=== PATIENT | male | born 1955 | race Caucasian/White ===

== ENCOUNTER → 2018-03-19 09:53 | Outpatient (CLI) | payer BC, SELFPAY ==
--- NOTE | 2018-03-19 | DI.US.S_ITS ---
PROCEDURE: US RENAL COMPLETE INDICATIONS: 63 year-old male with renal cysts on prior imaging studies. TECHNIQUE: Real-time scanning was performed of the kidneys and bladder, with image documentation. COMPARISON: [facility], MR, ANGIO ABDOMEN W&WO CONTRAST, 01/24/2014, 9:16. CT, IVP - CT (PNL), 08/12/2013, 8:06. [facility], US, RENAL COMPLETE, 09/08/2013, 9:51. FINDINGS: Kidneys: Kidneys are normal in size. Right kidney measures 12.6 cm long; left kidney measures 10.4 cm long. Right renal cortical thickness is 2.4 cm; left renal cortical thickness is 1.4 cm. Renal cortical echotexture is normal. No hydronephrosis or nephrolithiasis. No suspicious solid mass lesions. Stable appearance of bilateral renal cyst measuring 3.6 x 3.9 x 3.6 cm on the right and 1.7 x 1.5 x 1.4 cm on the left. Bladder: Pre-void bladder volume is 165 mL. Post-void residual is 45 mL. Pre-void images demonstrate no intraluminal masses or stones. On pre-void images, neither ureteral jets are noted with color Doppler interrogation. (Of note, ureteral jets may not be detectable in up to 25% of cases due to insufficient differences in specific gravity between ureteral and bladder urine). Miscellaneous: No free pelvic fluid. IMPRESSION: Bilateral exophytic renal cortical simple cysts are not significantly changed in size. No further imaging followup is needed. Dictated by: Jere HARP Interpreted: Marco Muhammad MD on 03/19/2018 at 13:29 Approved by: Mark Edward M.D. on 03/22/2018 at 10:13
== END ==
PROVIDERS: Family Provider Family Medicine; PCP Family Medicine; Visit Provider Urology
DX: N28.1 Cyst of kidney, acquired (principal)
CPT/HCPCS: 76770

== ENCOUNTER → 2019-10-10 11:48 | Outpatient (CLI) | payer MEDICARE, BC, SELFPAY ==
--- NOTE | 2019-10-10 | DI.RAD.S_ITS ---
PROCEDURE: XR WRIST RT MIN 3V INDICATIONS: right wrist pain TECHNIQUE: 4 views of the wrist were acquired. COMPARISON: None. FINDINGS: Bones: No fractures or dislocations. No suspicious bony lesions. Scaphoid view: Scaphoid appears intact. Soft tissues: No suspicious soft tissue calcifications. IMPRESSION: No acute osseous abnormality of the right wrist. Dictated by: Keron Tracey M.D. on 10/10/2019 at 15:10 Approved by: Keron Tracey M.D. on 10/10/2019 at 15:13
== END ==
PROVIDERS: Family Provider Family Medicine; PCP Family Medicine; Visit Provider Family Medicine
DX: M25.531 Pain in right wrist (principal)
CPT/HCPCS: 73110

== ENCOUNTER → 2020-06-08 10:07 | Outpatient (CLI) | payer MEDICARE, BC, SELFPAY ==
[2020-06-08 11:37] LABS: COVID19 Sendout Not Detected (Not Detect)
== END ==
PROVIDERS: PCP Family Medicine; Visit Provider Physician Assistant
DX: Z11.59 Encounter for screening for other viral diseases (principal)
CPT/HCPCS: 87635

== ENCOUNTER 2020-06-11 14:03 | Day surgery (SDC) | payer MEDICARE, BC, SELFPAY ==
--- NOTE | 2020-06-11 | PATH_ITS ---
[facility] Accession Number: [id number] . 01 Material submitted: . colon - ASCENDING COLON POLYP BIOPSY 2MM . 01 Clinical history: . SDC . 02 Diagnosis: Ascending Colon, Polyp 2 mm, Biopsy: Tubular adenoma. MRV 06/13/2020 1319 Local . 02 Electronically signed: . Vanessa Chacon MD, Pathologist NPI- [id number] . 01 Gross description: . ASCENDING COLON POLYP BIOPSY 2MM: Received in formalin is 1 fragment(s) of persaud, soft tissue measuring 0.3 x 0.3 x 0.2 cm submitted entirely in 1 cassette(s) /QBJ 06/12/2020 0701 Local . 02 Pathologist provided ICD-10: D12.2 . 02 CPT . 545547 Performed at: 01 [facility] [address] [id number] MD Lloyd Jacobs MD Phone: [phone] Performed at: 02 [facility] [address] [place], [place] [id number] MD Vanessa Chacon MD Phone: [phone]
--- NOTE | 2020-06-11 12:21 | P.HP_ITS ---
History of Present Illness History of Present Illness Date Patient Seen: 06/11/20 Chief complaint: SDC Narrative: 64 year old male comes in today for consideration of a screening colonoscopy. Has had 3 lifetime colonoscopies. The first colonoscopy was at around age 49, reportedly normal. The last 2 were in 2017: 01/21/2017, indicated for screening. Redundant colon. Large 3 cm polyp in the cecum, advanced mixed tubular and villiform adenoma with focal areas of high- grade dysplasia. Short stalk appeared neoplastic with no normal colon mucosa identified. No evidence of invasive malignancy. 07/06/2017, indicated for surveillance of post polypectomy site. No recurrence of polypoid previous polypectomy site seen, targeted biopsy taken and benign. Colon polyps x2, tubular adenomas. There have been no lower GI symptoms suggesting disease such as change in bowel habits, bleeding, abdominal pain or anemia. There's been no family history of colon cancer or colon polyps. Overall health issues have been stable, including no major cardiac events for at least 6 weeks. PCP: Dr. Calles Past medical history: Skin cancer Gout Trigger finger, Hypertension Tachycardia Hypothyroidism History of colon polyps Obesity Hyperlipidemia Anxiety Prostate cancer Sleep apnea GERD History of tobacco dependence Bilateral knee pain Past surgical history: Tonsillectomy Radical prostatectomy, 2016 Carpal tunnel Cubital tunnel Meniscal repair Umbilical hernia repair Family history: Noncontributory Social history: , retired. Medications: Zocor 20 mg p.o. q.day Lisinopril 40 mg p.o. q.day Clonidine 0.3 mg, half tab p.o. b.i.d. Chlorthalidone 25 mg p.o. q.d. Levothyroxine 5 mcg p.o. q.day Paxil 20 mg p.o. q.day Sulindac 20 mg p.o. b.i.d. as needed for gout flares Allergies: Steri-Strips Bactrim Patient History Medical History (Updated 06/11/20 @ 14:36 by Vanessa Sanchez RN) Prostate cancer (Acute) Torn meniscus (Acute) Umbilical hernia (Acute) Surgical History (Updated 06/11/20 @ 14:36 by Vanessa Sanchez RN) History of carpal tunnel release (Acute) Hx of tonsillectomy (Acute) S/P cubital tunnel release (Acute) Meds Home Medications and Allergies Home Medications Medication Instructions Recorded Confirmed Type chlorthalidone 25 mg PO DAILY 06/11/20 06/11/20 History clonidine HCl 0.3 mg PO BID 06/11/20 06/11/20 History levothyroxine 25 mcg PO DAILY 06/11/20 06/11/20 History lisinopril 40 mg PO DAILY 06/11/20 06/11/20 History paroxetine HCl 20 mg PO DAILY 06/11/20 06/11/20 History simvastatin 20 mg PO DAILY 06/11/20 06/11/20 History sulindac 200 mg PO BID PRN 06/11/20 06/11/20 History Allergies Allergy/AdvReac Type Severity Reaction Status Date / Time sulfamethoxazole Allergy Mild Rash Verified 06/11/20 14:37 [From Bactrim] trimethoprim [From Bactrim] Allergy Mild Rash Verified 06/11/20 14:37 steristrips Allergy Blister Uncoded 06/11/20 14:37 Review of Systems Review of Systems ROS: Yes All systems reviewed with the patient and are negative except as otherwise documented Exam Narrative Exam Narrative: GENERAL: Alert and oriented, appearing stated age and in no acute distress. HEENT: Head normocephalic/atraumatic. Pupils equal, round, and reactive to light and accomodation. Extraocular muscles intact. Tympanic membranes clear. Nasal mucosa moist, septum midline. Oral mucosa moist, no lesions. Neck soft and supple, no lymphadenopathy. LUNGS: Clear to ausculation bilaterally, no wheezes, rhonchi or rales. CV: Normal S1 and S2 with regular rate and rhythm, no audible murmurs, rubs or gallops. ABDOMEN: Soft, non-tender, non-distended, no organomegaly. Positive bowel sounds. EXTREMITIES: No clubbing, cyanosis, or edema. NEURO: Cranial nerves II through XII grossly intact, no focal deficits. PSYCH: Alert and oriented x 3. SKIN: No concerning lesions. Assessment & Plan Assessment & Plan narrative: 1. History of colon polyps 2. Screening for colon cancer Plan for colonoscopy. The nature and character of the procedure as well as anticipated results were discussed. The possibility of not completing the procedure was also discussed. Possible complications including aspiration pneu monia, bleeding, perforation and reaction to medications either for sedation or preparation and missed lesions were discussed. Questions were answered and proceeding to the colonoscopy was elected. Informed consent signed. I sincerely appreciate the referral allowing me to participate in this patient's care. Please contact me with any questions or concerns.
--- NOTE | 2020-06-11 12:32 | PM.OP.ENDO ---
Operative Date/Time/Diagnoses Date of procedure: 06/11/20 Procedure Notes SCOAP/Timeout: 3:02 p.m. Procedure in detail: ENDOSCOPIST: Berta Mccain MD Sedation RN: Rainer Padilla RN Sedation start time: 15:03 Sedation end time: 15:22 PROCEDURE: Colonoscopy with biopsy INDICATIONS: 1. History of colon polyps 2. Screening for colon cancer MEDICATION: Levsin 0.125 mg sublingual, incremental doses of Versed and fentanyl until appropriate level sedation achieved. ASA CLASS: 2 CECAL WITHDRAWAL TIME: 22 minutes COMPLICATIONS: None. EXTENT OF PROCEDURE: Cecum. QUALITY OF PREP: Good with portions of liquid stool. PROCEDURE: Prior to insertion of the colonoscope, a digital rectal examination was accomplished with circumferential palpation of the distal rectal mucosa without significant findings being noted. The high-definition colonoscope was passed into the rectum in the usual fashion and advanced over to the cecum without difficulty. The ileocecal valve, appendiceal stoma, and medial wall all could be inspected and no abnormalities were seen. No recurrence of previous polyp noted. ASCENDING COLON: As the colonoscope was withdrawn, care was taken to expose and inspect the haustral folds and a small, 2 mm polyp was removed with cold biopsy forceps. HEPATIC FLEXURE: Normal, no polyps, diverticula or other abnormalities. TRANSVERSE COLON: Normal, no polyps, diverticula or other abnormalities. DESCENDING COLON: Normal, no polyps, diverticula or other abnormalities. SIGMOID COLON: Few scattered diverticuli, otherwise normal, no polyps or other abnormalities. RECTUM: Normal. J maneuver was produced. There was no significant perianal disease. The J maneuver was broken. The remainder of the rectum was inspected and there was no external hemorrhoid disease. The scope was withdrawn. IMPRESSION: 1. Ascending polyp x1, 2 mm, removed with cold biopsy forceps 2. Scattered diverticuli, sigmoid colon, minor 3. No evidence of recurrence of cecal lesion. PLAN: 1. Follow-up in clinic status pathology results. The possibility of a missed lesion including a malignancy has been discussed with the patient previously. Potential alarm symptoms have been discussed and should be reported immediately. Post-procedure Recommendations: Will call with biopsy results Follow up: weeks (2) Disposition: PACU
[2020-06-11] MEDS: LACTATED RINGERS 1,000 ML 200 ML IV (14:26)
[2020-06-11] MEDS: HYOSCYAMINE 0.125 MG TABLET PO (14:26)
[2020-06-11 14:41] VITALS: BP 153/82; PULSE 77; RESP 16; TEMP 36.2; O2SAT 98; BMI 35.7
[2020-06-11] MEDS: fentaNYL 250 MCG/5 ML INJ IV (15:03)
[2020-06-11] MEDS: MIDAZOLAM 5 MG/5 ML VIAL IV (15:06)
[2020-06-11 15:29] VITALS: BP 122/74; PULSE 65; RESP 19; O2SAT 96
[2020-06-11 15:34] VITALS: BP 116/75; PULSE 61; RESP 14; O2SAT 95
[2020-06-11 15:39] VITALS: BP 118/77; PULSE 63; RESP 20; O2SAT 95
[2020-06-11 15:40] VITALS: TEMP 36.2
[2020-06-11 16:06] VITALS: BP 117/75; PULSE 73; RESP 16; TEMP 36.7; O2SAT 95
--- NOTE | 2020-06-11 16:11 | SUR.PHASEII ---
Yulia Ly RN provided Phase II patient care; Nayla Marcos RN provided documentation. Pt pleasant, oriented, comfortable upon discharge.
== END 2020-06-11 16:11 | disposition home or self-care (01) ==
PROVIDERS: PCP Family Medicine; Referring Provider Student in an Organized Health Care Education/Training Program; Visit Provider Student in an Organized Health Care Education/Training Program
PROC: 0DJD8ZZ Inspection of Lower Intestinal Tract, Via Natural or Artificial Opening Endoscopic (ICD-10-PCS; CPT 45378; principal; 2020-06-11 15:15)
DX: Z12.11 Encounter for screening for malignant neoplasm of colon (principal); K57.30 Diverticulosis of large intestine without perforation or abscess without bleeding; D12.2 Benign neoplasm of ascending colon
CPT/HCPCS: 45380; J2250; J3010

== ENCOUNTER → 2020-06-26 08:28 | Outpatient (CLI) | payer MEDICARE, OTHER, SELFPAY ==
--- NOTE | 2020-06-26 | DI.US.S_ITS ---
PROCEDURE: US ABD AORTA ANEURYSM SCREEN INDICATIONS: SCREENING TECHNIQUE: Real time scanning was performed of the aorta and iliac arteries, with image documentation. COMPARISON: [facility], , ANGIO ABDOMEN W&WO CONTRAST, 01/24/2014, 9:16. FINDINGS: Aorta: Proximal aortic diameter measures 2 cm. Mid-aorta measures 1.6 cm. Distal aortic diameter is 1.5 cm. Iliac arteries: Right common iliac artery measures 1 cm. Left common iliac artery measures 1 cm. IMPRESSION: Negative for aneurysm. Dictated by: Dariusz Hayes M.D. on 06/26/2020 at 8:28 Approved by: Dariusz Hayes M.D. on 06/26/2020 at 8:29
== END ==
PROVIDERS: PCP Family Medicine; Referring Provider Family Medicine; Visit Provider Family Medicine
DX: Z13.6 Encounter for screening for cardiovascular disorders (principal)
CPT/HCPCS: 76706

== ENCOUNTER → 2020-09-21 13:45 | Outpatient (CLI) | payer MEDICARE, OTHER, SELFPAY ==
--- NOTE | 2020-09-21 13:48 | DI.MRI.S_ITS ---
PROCEDURE: MR HEAD/BRAIN WO/W CON INDICATIONS: Diplopia TECHNIQUE: Noncontrast axial T1 spin echo, axial T2 fast spin echo, sagittal and axial FLAIR, axial gradient echo, axial diffusion and ADC through the brain. After the administration of contrast, axial and coronal T1 spin echo with fat saturation through the brain, coronal thin-slice T1 spin echo with fat saturation through the orbits. COMPARISON: None. FINDINGS: Image quality: Excellent. Orbits: The orbits demonstrate an unremarkable, symmetric appearance. The globes are within normal limits. The lacrimal glands are unremarkable. The extraocular muscles demonstrate a normal, symmetric appearance, without abnormal enhancement. No orbital masses are seen. CSF spaces: Ventricles are normal in size and shape. Basal cisterns are patent. No extra-axial fluid collections. Brain: No acute intracranial bleeds or mass effects. Coleman-white matter interface is intact. No abnormal intracranial enhancement. Diffusion weighted images demonstrate no acute ischemic insults. Brainstem appears normal. Normal intravascular flow voids are present. Skull and face: Calvarial marrow signal is normal. Orbits appear normal. Sinuses: Sinuses and mastoids appear clear. Bilateral shelley bullosa are incidentally noted, left larger than right. IMPRESSION: No imaging explanation is found for this patient's presenting symptoms. No masses or abnormal enhancement can be seen. No findings of acute or subacute infarction can be seen. Dictated by: Dariusz Hayes M.D. on 09/21/2020 at 14:33 Approved by: Dariusz Hayes M.D. on 09/21/2020 at 14:35
== END ==
PROVIDERS: PCP Family Medicine; Referring Provider Family Medicine; Visit Provider Family Medicine
DX: H53.2 Diplopia (principal)
CPT/HCPCS: 70553

== ENCOUNTER → 2024-01-25 09:55 | Outpatient (CLI) | payer MEDICARE, OTHER, SELFPAY ==
--- NOTE | 2024-01-27 02:35 | DI.NM.S_ITS ---
DATE OF SERVICE: 01/25/2024 PROCEDURE: Exercise perfusion study. INDICATIONS: Dyspnea on exertion. RADIOPHARMACEUTICAL: 25.5 millicurie technetium-99m Myoview IV was injected at stress and 24.7 millicurie technetium-99m Myoview IV was injected at rest. CARDIAC STRESS: The patient underwent exercise perfusion study under the supervision of an attending staff using standard Santos protocol. He walked on Santos protocol for 7 minutes and 0.5 seconds. Achieved maximum heart rate of 152. Targeted heart rate was 128 and maximum heart rate 152. Achieved 100% of target heart rate. 10.1 METS of workload. Resting blood pressure 96/70 and peak blood pressure 130/80. Baseline rhythm sinus with anterior lateral T-wave inversion. During exercise, the patient developed predominantly at the peak exercise and early recovery 1-[address] depression in inferior leads and leads V1 to V6 with diffuse T-wave inversion, which got resolved to baseline within 1 minute in recovery. The patient has intermittent PACs without any AFib or ventricular tachycardia. No anginal symptoms as per the midlevel supervisor boiler repair stress test. I spoke to her. RAW DATA: There is increased subdiaphragmatic activity. Diaphragmatic shadow seen encroaching the inferior border of the heart. The patient's weight is 220 pounds. Stress LV ejection fraction 75% without any obvious wall motion abnormalities. Resting end-diastolic volume 56 mL. TID ratio 1.03, which is within normal limits. MYOCARDIAL PERFUSION SCAN: Stress supine, resting supine and stress prone images were compared to each other. Stress supine and resting supine images revealed small size, mildly decreased perfusion of inferior septum which got completely resolved during stress prone images, suggestive of tissue attenuation artifact. Stress prone images revealed normal myocardial perfusion. CONCLUSION: This is a normal myocardial perfusion study. The patient walked on Santos protocol for 7 minutes and 0.5 seconds. 100% target heart rate. Normal blood pressure response. No anginal symptoms. At peak exercise and early recovery patient has 1-[address] depression in inferolateral leads with diffuse T-wave inversion, which got resolved to baseline within 1 minute. Intermittent PACs. No complex arrhythmias. Preserved left ventricular function. No transient ischemic dilatation. As perfusion scan is normal with preserved left ventricular function, overall low-risk myocardial perfusion scan. However, if clinical suspicion for coronary artery disease is high, consider further workup in view of abnormal EKG changes like CT coronary angiogram. Eddie Clark - [place]/kin/sariah doc#: [id number]/job#: [id number] dd: 01/26/2024 17:20:00 dt: 01/27/2024 02:11:00 DICTATING MD/COPIES TO: Jeffry Linares MD; Matthew Calles MD COPIES MNE: VERONICA;
== END ==
LOC: NUCM 09:56
PROVIDERS: PCP Family Medicine; Referring Provider Family Medicine; Visit Provider Family Medicine
DX: R06.09 Other forms of dyspnea (principal)
CPT/HCPCS: 78452; 93017; A9502

== ENCOUNTER → 2024-03-16 16:10 | Outpatient (CLI) | payer MEDICARE, OTHER, SELFPAY | LOC: RESP 16:12 | PROVIDERS: PCP Family Medicine; Referring Provider Family Medicine; Visit Provider Family Medicine | DX: R06.09 Other forms of dyspnea (principal); F17.210 Nicotine dependence, cigarettes, uncomplicated | CPT/HCPCS: 94060; 94726; 94729 ==

== ENCOUNTER → 2024-04-15 13:39 | Outpatient (CLI) | payer MEDICARE, OTHER, SELFPAY ==
--- NOTE | 2024-04-15 13:40 | DI.ECHO.S_ITS ---
[facility]+ [facility] : : [id number] : : [place] : : [id number] : : Phone: [phone] Echocardiogram Report + + :Name: MYAH PALMER Study Date: 04/15/2024 Height: 69 in : :Hospital ReadingLocation: Weight: 222 lb : : Gender: Male BSA: 2.2 m2 : :: 1955 Age: 69 yrs BP: 138/73 mmHg: :Reason For Study: DYPNEA : :Ordering Physician: ANNEMARIE, : :ALETHEA Performed By: Edgardo Zavala : :Referring: ALETHEA MARTINES : + + Interpretation Summary 1) Normal left ventricular thickness, size, wall motion, and systolic function (EF 65-70%). 2) Normal right ventricular size and function. 3) No significant valvular abnormalities. 4) No prior Echo available for comparison. Procedure: A two-dimensional transthoracic echocardiogram with color flow and Doppler was performed. The study quality was technically adequate. There is no prior echocardiogram noted for this patient. The patient was in sinus rhythm with heart rates between 68-74 bpm during the exam. Left Ventricle: The left ventricle is normal in size. Left ventricular wall thickness is normal. Proximal septal thickening is noted. The ejection fraction is estimated to be 65-70%. Left ventricular systolic function appears normal without focal wall motion abnormalities. Diastolic parameters suggest a relaxation abnormality of the left ventricle, consistent with probable normal filling pressures. Right Ventricle: The right ventricle is normal size. The right ventricular systolic function is normal. Atria: The left atrial size is normal. Right atrial size is normal. The interatrial septum grossly appears intact with no obvious evidence for an atrial septal defect. Mitral Valve: The mitral valve is normal. There is moderate mitral annular calcification. There is no mitral valve stenosis. There is trace mitral regurgitation. Aortic Valve: The aortic valve is trileaflet. There is no aortic valve stenosis. No aortic regurgitation is present. Tricuspid Valve: The tricuspid valve is not well visualized, but is grossly normal. There is no tricuspid stenosis. No tricuspid regurgitation. Pulmonary artery pressures cannot be estimated because of the lack of a measurable TR jet velocity. Pulmonic Valve: The pulmonic valve is not well visualized. There is no pulmonic valvular stenosis. There is no pulmonic valvular regurgitation. Great Vessels: The aortic root is normal size. The dimensions of the ascending aorta are normal. The IVC is of normal diameter and collapses greater than 50% with a sniff. This suggests a low right atrial pressure of 3 mm Hg. Pericardium/ Pleura There is no pericardial effusion. There is no pleural effusion. MMode/2D Measurements & Calculations LVIDd: 4.3 cm LVOT diam: 2.3 cm LVIDs: 2.8 cm Ao root diam: 3.7 cm FS: 35.5 % asc Aorta Diam: 3.2 cm IVSd: 1.1 cm LVPWd: 1.1 cm LV ramos. diameter/BSA (cm/m^2): 2.0 LV sys. diameter/BSA (cm/m^2): 1.3 LA A2 area: 17.0 cm2 RA long axis: 4.9 cm LA A4 area: 16.6 cm2 RA area: 16.5 cm2 LA length (vol): 5.0 cm RA vol: 47.7 ml LA vol: 48.2 ml RA : 22.1 ml/m2 LA vol index: 22.3 ml/m2 IVC diam: 1.3 cm RVD1 (basal): 3.4 cm RVD2 (mid): 2.7 cm TAPSE: 1.9 cm Doppler Measurements & Calculations Ao V2 max: 132.6 cm/sec LVOT Max Billy: 85.3 cm/sec Ao V2 mean: 87.5 cm/sec LV V1 max P.9 mmHg Ao max P.0 mmHg LV V1 VTI: 18.5 cm Ao mean P.6 mmHg SARA(I,D): 2.9 cm2 Ao V2 VTI: 26.6 cm SARA(V,D): 2.7 cm2 sev ratio: 0.70 SARA indexed to BSA (cm^2/m^2): 1.4 MV E max billy: 89.5 cm/sec PA V2 max: 100.8 cm/sec MV A max billy: 114.5 cm/sec PA V2 mean: 75.2 cm/sec MV E/A: 0.78 PA mean P.4 mmHg Med Peak E' Billy: 5.6 cm/sec PA pr(Accel): 46.5 mmHg E/E' med: 15.9 Lat Peak E' Billy: 5.2 cm/sec E/E' lat: 17.1 E/e' average: 16.5 MV dec time: 0.19 sec SV(LVOT): 77.8 ml Reading Physician:04:00 PM
== END ==
PROVIDERS: PCP Family Medicine; Referring Provider Internal Medicine Cardiovascular Disease; Visit Provider Internal Medicine Cardiovascular Disease
DX: R06.09 Other forms of dyspnea (principal); I34.81 Nonrheumatic mitral (valve) annulus calcification
CPT/HCPCS: 93306